=== PATIENT | female | born 1940 | race Caucasian/White ===

== ENCOUNTER 2018-09-05 11:04 | Outpatient (CLI) | payer MEDICARE, OTHER | END 2018-09-05 11:05 | disposition critical access hospital (66) | LOC: EMS 11:04 | PROVIDERS: ATTEND Surgery | DX: R55 Syncope and collapse (principal) | CPT/HCPCS: A0425; A0427 ==

== ENCOUNTER 2018-09-05 11:44 | Emergency (ER) | payer MEDICARE, OTHER ==
--- NOTE | 2018-09-05 12:22 | ED Physician Documentation ---
History of Present Illness - Stated complaint Stated Complaint: SYNCOPE - Chief complaint Chief Complaint: General - History obtained from History obtained from: Patient - Additonal information Additional information: Patient is a 77-year-old female presenting with right ear pain, general unwell feeling, nausea and one episode of vomiting, stomach cramping, and near syncope earlier today. Patient denies headache, vision changes, chest pain, difficulty breathing, productive cough, or fever. Patient denies urinary or stool changes. Patient reports that she felt unwell later head on the table earlier today and kind of collapsed to the floor although her caught her and she did not suffer trauma or have any injuries. Patient states that she also felt a tingling sensation and describes additionally as vibrating to her hands following this episode but does admit to hyperventilating at the time. Patient reports that she feels as if her symptoms are already improving. No other improving or worsening factors noted. Review of Systems Constitutional: denies: Fever Eyes: denies: Loss of vision Ears: reports: Ear pain Cardiac: denies: Chest pain / pressure, Palpitations Respiratory: denies: Dyspnea, Cough GI: reports: Abdominal Pain, Nausea, Vomiting. denies: Diarrhea : denies: Dysuria Neurologic: reports: Near syncope. denies: Focal weakness, Numbness PD PAST MEDICAL HISTORY - Past Medical History Past Medical History: Yes Psych: Depression - Past Surgical History Past Surgical History: No - Present Medications Home Medications: Ambulatory Orders Medication Instructions Recorded Confirmed Citalopram [CeleXA] 10 mg PO DAILY 09/05/18 09/05/18 Doxycycline Hyclate 100 mg PO BID #20 capsule 09/05/18 Simvastatin 09/05/18 - Allergies Allergies/Adverse Reactions: Allergies Allergy/AdvReac Type Severity Reaction Status Date / Time Penicillins Allergy Unknown Verified 09/05/18 11:52 Sulfa (Sulfonamide Allergy Unknown Verified 09/05/18 11:52 Antibiotics) PD ED PE NORMAL - Vitals Vital signs reviewed: Yes - General General: Alert and oriented X 3, No acute distress, Well developed/nourished - HEENT HEENT: Atraumatic, PERRL (Gross visual acuity intact. No nystagmus.), EOMI, Moist mucous membranes, Pharynx benign, Dentition benign - Neck Neck: Supple, no meningeal sign - Cardiac Cardiac: RRR, No murmur - Respiratory Respiratory: No respiratory distress, Clear bilaterally - Abdomen Abdomen: Normal bowel sounds, Soft, Non tender, Non distended - Derm Derm: Normal color, Warm and dry, No rash - Extremities Extremities: No deformity, No tenderness to palpate - Neuro Neuro: Alert and oriented X 3, No motor deficit, No sensory deficit - Psych Psych: Normal mood, Normal affect Results - Vitals Vitals: Vital Signs - 24 hr 09/05/18 11:52 Temperature 36.8 C Heart Rate 77 Respiratory 14 Rate Blood Pressure 126/67 O2 Saturation 96 Oxygen O2 Source Room air - EKG (time done) 1209 Rate: Rate (enter#) (69) Intervals: Prolonged QT Ischemia: Non specific changes - Labs Labs: Laboratory Tests 09/05/18 09/05/18 09/05/18 12:45 12:45 12:55 WBC 11.1 H RBC 4.21 Hgb 13.1 Hct 40.1 MCV 95.2 MCH 31.1 H MCHC 32.7 RDW 13.4 Plt Count 186 MPV 9.6 Neut # (Auto) 9.3 H Lymph # (Auto) 0.5 L [place] # (Auto) 1.0 Eos # (Auto) 0.2 Baso # (Auto) 0.0 Absolute Nucleated RBC 0.00 Nucleated RBC % 0.0 PT INR APTT Sodium 139 Potassium 3.8 Chloride 101 Carbon Dioxide 26 Anion Gap 12.0 BUN 19 Creatinine 0.6 Estimated GFR (MDRD) 97 Glucose 109 H Calcium 9.1 Total Bilirubin 1.4 H AST 18 ALT 15 Alkaline Phosphatase 68 Troponin I < 0.04 Troponin I High Sens 7.3 Total Protein 6.6 L Albumin 3.9 Globulin 2.7 Albumin/Globulin Ratio 1.4 Lipase 26 Urine Color Urine Clarity Urine pH Ur Specific [place] Urine Protein Urine Glucose (UA) Urine Ketones Urine Occult Blood Urine Nitrite Urine Bilirubin Urine Urobilinogen Ur Leukocyte Esterase Urine RBC Urine WBC Ur Squamous Epith Cells Urine Bacteria Urine Casts Urine Mucus Ur Microscopic Review Urine Culture Comments 09/05/18 09/05/18 12:55 13:58 WBC RBC Hgb Hct MCV MCH MCHC RDW Plt Count MPV Neut # (Auto) Lymph # (Auto) [place] # (Auto) Eos # (Auto) Baso # (Auto) Absolute Nucleated RBC Nucleated RBC % PT 13.6 H INR 1.2 APTT 26.6 Sodium Potassium Chloride Carbon Dioxide Anion Gap BUN Creatinine Estimated GFR (MDRD) Glucose Calcium Total Bilirubin AST ALT Alkaline Phosphatase Troponin I Troponin I High Sens Total Protein Albumin Globulin Albumin/Globulin Ratio Lipase Urine Color YELLOW Urine Clarity CLEAR Urine pH 6.0 Ur Specific [place] 1.015 Urine Protein NEGATIVE Urine Glucose (UA) NEGATIVE Urine Ketones 40 H Urine Occult Blood SMALL H Urine Nitrite NEGATIVE Urine Bilirubin NEGATIVE Urine Urobilinogen 0.2 (NORMAL) Ur Leukocyte Esterase NEGATIVE Urine RBC 0-5 Urine WBC 0-3 Ur Squamous Epith Cells FEW Squamous Urine Bacteria Few Urine Casts 3-5 Hyaline Casts Urine Mucus Moderate Strands Ur Microscopic Review INDICATED Urine Culture Comments NOT INDICATED PD MEDICAL DECISION MAKING - ED course Complexity details: reviewed results, re-evaluated patient, considered differential, d/w patient, d/w family ED course: Patient's physical exam is extremely benign and patient reports near resolution of all complaints. Do not find evidence of otitis media, otitis externa, mastoiditis or clear explanation for ear discomfort. Patient's abdomen is benign and do not have high suspicion for intra-abdominal pathology as a cause for her GI upset symptoms.Patient does report near syncope, but have lower suspicion for PE, ACS, VT, unstable angina, dissection, aneurysm, but considered. Given patient's prolonged QT on EKG, refrain from medication such as Zofran. However, do not find evidence of ischemia on EKG and cardiac enzymes within normal limits. Remainder screening lab work relatively unremarkable without significant leukocytosis, acute kidney injury, electrolyte imbalance or other complication. Urinalysis rather unremarkable and did not reflect infection. CT head returned without evidence of acute pathology including stroke. Have low suspicion for intracranial pathology as opposed to peripheral issues such as benign positional vertigo. Chest x-ray revealed pneumonia which could be the underlying cause for symptoms. Had extensive discussions with patient and family and feel that she is safe to discharge home on oral antibiotics. Given patient's prolonged QTC, likely from use of citalopram at home, did not prescribe azithromycin, but rather doxycycline. Also advised on strict return precautions, supportive cares, and appropriate follow-up. Patient has been voiced understanding and are comfortable with discharge plan. Departure - Departure Disposition: 01 Home, Self Care Clinical Impression: Pneumonia Qualifiers: Pneumonia type: due to unspecified organism Laterality: unspecified laterality Lung location: unspecified part of lung Qualified Code(s): J18.9 - Pneumonia, unspecified organism Instructions: ED Pneumonia Adult Follow-Up: your,doctor [Other] - Within 3 Days Prescriptions: Doxycycline Hyclate 100 mg PO BID #20 capsule Comments: These continue home medications as previously instructed. Please start taking antibiotic later today for pneumonia. Follow up with primary care physician in next 2 to 3 days. Return to ED sooner if experience worsening symptoms or have other concerns.
[2018-09-05] MEDS ORDERED: SODIUM CHLORIDE 0.9% 1,000 ML IV ONE (12:46)
[2018-09-05] MEDS ORDERED: MECLIZINE 12.5 MG TABLET PO STA (12:46)
[2018-09-05 13:06] LABS: BASOPHILS % (AUTO) 0.3 %; EOSINOPHILS # (AUTO) 0.2 10^3/uL (0.0-0.7); EOSINOPHILS % (AUTO) 1.9 %; HGB - HEMOGLOBIN 13.1 g/dL (12.0-16.0); LYMPHOCYTES # (AUTO) 0.5 10^3/uL (1.5-3.5); LYMPHOCYTES % (AUTO) 4.4 %; MEAN CORPUSCULAR HEMOGLOBIN 31.1 pg (27.0-31.0); MEAN CORPUSCULAR HGB CONC 32.7 g/dL (32.0-36.0); MEAN CORPUSCULAR VOLUME 95.2 fL (81.0-99.0); MEAN PLATELET VOLUME 9.6 fL (7.9-10.8); MONOCYTES % (AUTO) 9.3 %; NEUTROPHILS # (AUTO) 9.3 10^3/uL (1.5-6.6); NEUTROPHILS % (AUTO) 83.6 %; PLT - PLATELET COUNT 186 10^3/uL (130-450); RED BLOOD COUNT 4.21 10^6/uL (4.20-5.40); RED CELL DISTRIBUTION WIDTH 13.4 % (12.0-15.0); WHITE BLOOD COUNT 11.1 x10^3/uL (4.8-10.8)
[2018-09-05 13:14] LABS: INR 1.2 (0.8-1.2); PT - PROTHROMBIN TIME 13.6 secs (9.9-12.6)
[2018-09-05 13:22] LABS: PARTIAL THROMBOPLASTIN TIME 26.6 secs (24.9-33.3)
--- NOTE | 2018-09-05 13:33 | CT Report ---
Reason: near syncope Procedure Date: 09/05/2018 Accession Number: [id number] / [id number] Procedure: CT - HEAD WO CPT Code: FULL RESULT: EXAM: CT HEAD EXAM DATE: 09/05/2018 01:16 PM. CLINICAL HISTORY: 77-year-old presenting after a near syncopal episode. Evaluate for intracranial pathology. COMPARISON: None. TECHNIQUE: Multiaxial CT images were obtained from the foramen magnum to the vertex. Reformats: Sagittal and coronal. IV contrast: None. In accordance with CT protocol optimization, one or more of the following dose reduction techniques were utilized for this exam: automated exposure control, adjustment of mA and/or KV based on patient size, or use of iterative reconstructive technique. FINDINGS: Parenchyma: No acute parenchymal hemorrhage, mass, or midline shift. Mild bilateral areas of white matter hypoattenuation seen that are age-indeterminate but appear chronic. There is no convincing CT evidence of acute infarct. Mild to moderate cortical volume loss. Extraaxial Spaces: Sulci and cisterns appear prominent but appropriate for the extent of volume loss. No subdural or epidural collections identified. Ventricles: Normal in size and position. Sinuses and Orbits: Imaged paranasal sinuses, orbits, and mastoids show no significant abnormality. Incidentally seen is pneumatization of the lateral sphenoid recesses, right greater than left. Bones: No evidence of fracture or calvarial defect. Other: Vascular calcifications of the cavernous and supraclinoid ICA segments. IMPRESSION: 1. No definite acute intracranial pathology seen; specifically, no acute infarct, acute intracranial hemorrhage, mass, hydrocephalus, or midline shift. If there is clinical concern for acute stroke or symptoms persist, an MRI brain can be considered to evaluate for small or subtle pathology. 2. Mild white matter changes seen that appear chronic suggesting potential sequela of chronic small vessel ischemic disease. [facility]
[2018-09-05 13:38] LABS: BILIRUBIN,TOTAL 1.4 mg/dL (0.2-1.0); CALCIUM 9.1 mg/dL (8.5-10.3); CREATININE 0.6 mg/dL (0.4-1.0)
[2018-09-05 13:39] LABS: ALBUMIN 3.9 g/dL (3.2-5.5); ALBUMIN/GLOBULIN RATIO 1.4 (1.0-2.2); TOTAL PROTEIN 6.6 g/dL (6.7-8.2)
[2018-09-05 13:43] LABS: TROPONIN I < 0.04 ng/mL (<0.49)
--- NOTE | 2018-09-05 13:46 | XRAY Report ---
Reason: cough Procedure Date: 09/05/2018 Accession Number: [id number] / [id number] Procedure: XR - Chest 2 View X-Ray CPT Code: 59173 FULL RESULT: EXAM: CHEST RADIOGRAPHY EXAM DATE: 09/05/2018 01:24 PM. CLINICAL HISTORY: Cough. Presyncopal episode. Altered mental status. COMPARISON: None. TECHNIQUE: 2 views. FINDINGS: Lungs/Pleura: Normal lung volumes. Interstitial infiltrate in the right perihilar region as well as in the right middle and lower lobes, sparing the superior segment. Left lung is clear. No effusion nor pneumothorax. Mediastinum: Heart is of normal caliber. Mild right hilar fullness. No tracheal shift. Other: None. IMPRESSION: Right middle and lower lobe infiltrates. Suspect right hilar adenopathy. Recommend posttreatment followup chest x-rays. If these findings do not resolve, CT chest recommended. [facility]
[2018-09-05 14:02] LABS: BILIRUBIN,URINE NEGATIVE (NEGATIVE); GLUCOSE, URINE (UA) NEGATIVE (NEGATIVE); KETONES,URINE (UA) 40 mg/dL (NEGATIVE); LEUKOCYTE ESTERASE, URINE NEGATIVE (NEGATIVE); NITRITE,URINE NEGATIVE (NEGATIVE); OCCULT BLOOD,URINE SMALL (NEGATIVE); PROTEIN,URINE NEGATIVE (NEGATIVE); UROBILINOGEN,URINE 0.2 (NORMAL) E.U./dL (NORMAL)
[2018-09-05 14:03] LABS: CLARITY,URINE CLEAR (CLEAR)
[2018-09-05 14:12] LABS: BACTERIA,URINE Few /HPF (None Seen); CASTS, URINE 3-5 Hyaline Casts /LPF; MUCUS,URINE Moderate Strands; RBC,URINE 0-5 /HPF (0-5); SQUAMOUS EPITHELIAL CELL,UR FEW Squamous (<= Few)
[2018-09-05 14:46] VITALS: BP 132/66
== END 2018-09-05 14:46 | disposition home or self-care (01) ==
LOC: ED 11:44
DX: J18.9 Pneumonia, unspecified organism (principal); R55 Syncope and collapse; I45.81 Long QT syndrome; Z88.0 Allergy status to penicillin
CPT/HCPCS: 36415; 70450; 71046; 81001; 83690; 84484; 85610; 85730; 96360; 96361; 99284; A9270; 80053; 81003; 84443; 85025; 87086